=== PATIENT | female | born 1990 | race Two or more races ===

== ENCOUNTER 2022-09-17 13:35 | Emergency (ER) | payer OTHER ==
[~2022-09-17] VITALS: Ht 162.6 cm; Wt 94.2 kg
[2022-09-17] MEDS ORDERED: TETANUS-DIPTH-ACEL PERTUSSIS 0.5ML SYR Tdap IM ONE (14:45)
[2022-09-17 15:03] VITALS: BP 129/69; PULSE 90; RESP 18; O2SAT 98
== END 2022-09-17 15:05 | disposition home or self-care (01) ==
LOC: ER 13:35
DX: S61.031A Puncture wound without foreign body of right thumb without damage to nail, initial encounter (principal); W22.8XXA Striking against or struck by other objects, initial encounter; Y93.E9 Activity, other interior property and clothing maintenance; Y92.89 Other specified places as the place of occurrence of the external cause; Y99.8 Other external cause status
CPT/HCPCS: 90471; 90715

== ENCOUNTER 2022-09-20 10:02 | Emergency (ER) | payer OTHER ==
[~2022-09-20] VITALS: Ht 162.6 cm; Wt 95.0 kg
[2022-09-20 10:32] VITALS: BP 117/97; PULSE 84; RESP 18; TEMP 97.4; O2SAT 97
[2022-09-20] MEDS ORDERED: HYDR-4902 PO (14:20)
[2022-09-20] MEDS ORDERED: HYDROcodone-ACET 5/325MG TAB PO ONE (14:30)
== END 2022-09-20 14:52 | disposition home or self-care (01) ==
LOC: ER 10:02
DX: N60.22 Fibroadenosis of left breast (principal); N64.4 Mastodynia; Z79.1 Long term (current) use of non-steroidal anti-inflammatories (NSAID)
CPT/HCPCS: 76642